=== PATIENT | female | born 1980 | race Caucasian/White ===

== ENCOUNTER 2018-02-06 22:19 | Emergency (ER) | payer OTHER ==
[~2018-02-06] VITALS: Ht 152.4 cm; Wt 59.4 kg
[~2018-02-06 22:19] MED LIST: CELEXA40 MG PO; CIPROFLOXACIN500 M1 PO; EFFEXOR XR150 MG; PROTONIX40 MG PO; PYRIDIUM200 MG PO; SEROQUEL 50 MG50 MG; XANAX 0.25 MG0.25 MG PO; ZOFRAN ODT4 MG PO
[2018-02-06] MEDS ORDERED: EFFEXOR XR75 MG (22:27)
[2018-02-06] MEDS ORDERED: ASPIR 8181 MG (22:27)
[2018-02-06 22:47] LABS: ABSOLUTE EOSINOPHILS 0.2 thou/uL (0.0-0.7); ABSOLUTE LYMPHOCYTES 2.3 thou/uL (0.8-5.3); ABSOLUTE MONOCYTES 0.5 thou/uL (0.0-1.2); ABSOLUTE NEUTROPHILS 4.1 thou/uL (1.6-8.1); BASOPHILS 0.5 %; EOSINOPHILS 2.2 %; HEMATOCRIT 39.9 % (37.0-47.0); HEMOGLOBIN 13.5 gm/dL (12.0-15.0); LYMPHOCYTES 32.8 %; MCH 31.8 pg (26.0-34.0); MCHC 33.8 g/dL (28.0-37.0); MCV 94.2 fL (80.0-100.0); MONOCYTES 6.6 %; MPV 7.8 fl. (7.2-11.1); NUCLEATED RBCS 0 /100WBC; PLATELET COUNT* 263 thou/uL (150-400); POLYS 57.9 %; RBC 4.24 mil/uL (4.20-5.00); RDW-CV 13.2 % (10.5-14.5)
[2018-02-06 22:57] LABS: ANION GAP 6 mmol/L (7-16); BUN 7 mg/dL (7-18); CHLORIDE 102 mmol/L (98-107); CO2 30 mmol/L (21-32); CREATININE 0.7 mg/dL (0.6-1.3); GLUCOSE 89 mg/dL (70-99); POTASSIUM 3.8 mmol/L (3.5-5.1); SODIUM 138 mmol/L (136-145)
[2018-02-06 22:59] LABS: PROTIME 10.2 Seconds (9.20-11.50)
[2018-02-06 23:03] LABS: ALKALINE PHOSPHATASE 67 U/L (46-116); LIPASE 172 U/L (73-393); SGOT 26 U/L (15-37); SGPT 31 U/L (30-65); TOTAL BILIRUBIN 0.5 mg/dL (<0.1-1.0); TOTAL PROTEIN 7.6 g/dL (6.4-8.2); TROPONIN-I LEVEL <0.06 ng/mL (<0.06)
[2018-02-07 01:13] VITALS: BP 111/65
--- NOTE | 2018-02-07 09:52 | EKG ---
[place] [address] ELECTROCARDIOGRAM REPORT Name: LITA HORN Room: [facility]#: [id number] Admission: 02/06/18 Attend Phys: Discharge: 02/07/18 Date of : 76 Report #: [id number] THIS REPORT FOR: //name// [facility] ED Test Date: 2018-02-06 Test Time: 22:25:48 Pat Name: LITA HORN Department: Room: Gender: F Quality Assurance/R&D Lab Technician: AKASH Green : 1980 Requested By: Hortencia Campo Order Number: [id number] MD: Simon Reagan Measurements Intervals [place] Rate: 75 P: 47 PA: 145 QRS: 67 QRSD: 89 T: 58 QT: 395 QTc: 442 Interpretive Statements Sinus rhythm Compared to ECG 06/17/2015 09:31:01 No significant changes Electronically Signed On 02-07-2018 9:52:19 CDT by Simon Reagan [email or web address] <ELECTRONICALLY SIGNED> By: Simon Reagan MD, [facility] 02/07/18 0952 2224 24 Simon Reagan MD, FACC /EPI
== END 2018-02-07 01:18 | disposition home or self-care (01) ==
LOC: M.ERS 22:19
PROVIDERS: Emergency Medicine
DX: R07.9 Chest pain, unspecified (principal)

== ENCOUNTER → 2018-04-07 | Outpatient (CLI) | payer OTHER ==
[~2018-04-07] MED LIST changes: +ASPIR 8181 MG; +EFFEXOR XR75 MG; +FLEXERIL PO
--- NOTE | 2018-04-07 14:05 | EXE ---
[place] [address] STRESS ECHOCARDIOGRAM Name: ЕЛЕНАKAILITA Room: [facility]#: [id number] Admission: 04/07/18 Attend Phys: Eliceo Suero, Discharge: Date of : 76 Date of Service: 04/07/18 1405 Report #: [id number] THIS REPORT FOR: //name// APPROVED REPORT Study performed: 04/07/2018 11:06:59 Exam: Stress Echocardiogram Indication: Chest pain Patient Location: Out-Patient Stress Nurse: Farrah Prajapati RN Supervising Physician: Dg Sanders MD Status: routine Ht: 5 ft 0 in HR: 76 bpm BP: 108/79 mmHg Rhythm: NSR Medical History Cardiac Risk Factors: FHX of CAD Procedure The patient underwent an Exercise Stress Test using the Steven Protocol. Blood pressure, heart rate, and EKG were monitored. An Echocardiogram was performed by physical therapy technician in four stages in quad fashion. At peak stress, four selected images were obtained and placed side by side with resting images for comparison. Stress Test Details Stress Test: Exercise stress testing was performed using a Steven protocol. HR Resting HR: 76 bpm Max Heart Rate (APMHR): 180 bpm Max HR Achieved: 182 bpm Target HR (85% APMHR): 153 bpm % of APMHR: 101 Recovery HR: 88 bpm HR response to stress: Normal HR response to stress BP Resting BP: 108/79 mmHg Max BP: 126/80 mmHg Recovery BP: 115/84 mmHg ECG Resting ECG: [place] [address] STRESS ECHOCARDIOGRAM Name: LITA HORN Room: [facility]#: [id number] Admission: 04/07/18 Attend Phys: Eliceo Suero, Discharge: Date of : 76 Date of Service: 04/07/18 1405 Report #: [id number] Stress ECG: minor nonspecific st-t changes Clinical Reason for Termination: Maximal effort, ST changes Exercise duration: 10 min sec Highest Stage Achieved: Stage 4: 4.2 mph at 16% grade. Exercise capacity: 11.83 METs Pre-Stress Echo The resting Echocardiogram showed normal left ventricular contractility with an estimated Ejection Fraction of about 55-60%. Normal wall motion in all segments on baseline images. Post-Stress Echo The stress Echocardiogram showed normal left ventricular contractility with an estimated Ejection Fraction of about >70%. Normal augmentation of wall motion in all segments on post stress images. Conclusion Clinical Response: Non-ischemic Exercise Capacity: Average Stress ECG Response: Non-ischemic Stress Echo Images: Non-ischemic Other Information Study Quality: Adequate <ELECTRONICALLY SIGNED> By: Dg Sanders MD, [facility] 04/07/18 1405 1405 04 Dg Sanders MD, [facility] /INF
== END ==
LOC: M.CRD 10:35
DX: R07.9 Chest pain, unspecified (principal); R07.2 Precordial pain

== ENCOUNTER → 2018-04-07 | Outpatient (CLI) | payer OTHER | LOC: M.CT 08:58 | DX: Z13.6 Encounter for screening for cardiovascular disorders (principal) ==

== ENCOUNTER 2018-04-18 08:21 | Emergency (ER) | payer OTHER ==
[~2018-04-18] VITALS: Ht 152.4 cm; Wt 54.4 kg
[~2018-04-18 08:21] MED LIST changes: -FLEXERIL PO
[2018-04-18 09:02] LABS: CALCIUM 8.6 mg/dL (8.5-10.1); CREATININE 0.8 mg/dL (0.6-1.3); POTASSIUM 3.9 mmol/L (3.5-5.1)
[2018-04-18] MEDS ORDERED: FLEXERIL PO (11:07)
[2018-04-18 11:15] VITALS: BP 100/69
== END 2018-04-18 11:16 | disposition home or self-care (01) ==
LOC: M.ERS 08:21
PROVIDERS: Emergency Medicine Emergency Medical Services
DX: M79.662 Pain in left lower leg (principal)

== ENCOUNTER → 2018-10-19 | Outpatient (CLI) | payer OTHER ==
[~2018-10-19] MED LIST changes: +FLEXERIL PO
== END ==
LOC: M.RAD 10:54
DX: J18.9 Pneumonia, unspecified organism (principal)

== ENCOUNTER → 2019-03-10 | Outpatient (CLI) | payer OTHER ==
[2019-03-10 11:18] LABS: URINE BILIRUBIN NEGATIVE (Negative); URINE BLOOD NEGATIVE (Negative); URINE CLARITY CLEAR; URINE COLOR YELLOW; URINE GLUCOSE-RANDOM NEGATIVE (Negative); URINE KETONES NEGATIVE (Negative); URINE LEUKOCYTES NEGATIVE (Negative); URINE NITRITE NEGATIVE (Negative); URINE PROTEIN NEGATIVE (Negative); URINE UROBILINOGEN 0.2 E.U./dl (0.2-1.0)
[2019-03-10 11:23] LABS: ABSOLUTE EOSINOPHILS 0.1 thou/uL (0.0-0.7); ABSOLUTE LYMPHOCYTES 1.5 thou/uL (0.8-5.3); ABSOLUTE MONOCYTES 0.7 thou/uL (0.0-1.2); BASOPHILS 0.5 %; EOSINOPHILS 1.3 %; HEMATOCRIT 43.7 % (37.0-47.0); HEMOGLOBIN 14.5 gm/dL (12.0-15.0); LYMPHOCYTES 15.6 %; MCH 31.2 pg (26.0-34.0); MCHC 33.3 g/dL (28.0-37.0); MCV 93.9 fL (80.0-100.0); MONOCYTES 7.4 %; MPV 7.4 fl. (7.2-11.1); NUCLEATED RBCS 0 /100WBC; PLATELET COUNT* 316 thou/uL (150-400); POLYS 75.2 %; RBC 4.65 mil/uL (4.20-5.00); RDW-CV 14.4 % (10.5-14.5); WBC 9.3 thou/uL (4.0-11.0)
[2019-03-10 11:37] LABS: ALKALINE PHOSPHATASE 69 U/L (46-116); ANION GAP 6 mmol/L (7-16); BUN 12 mg/dL (7-18); CHLORIDE 103 mmol/L (98-107); CHOLESTEROL 219 mg/dL (<200); CO2 29 mmol/L (21-32); CREATININE 0.7 mg/dL (0.6-1.3); GLUCOSE 103 mg/dL (70-99); HDL CHOLESTEROL 80 mg/dL (>40); LDL CHOLESTEROL 128 mg/dL (<100); POTASSIUM 3.8 mmol/L (3.5-5.1); SGOT 31 U/L (15-37); SGPT 45 U/L (30-65); SODIUM 138 mmol/L (136-145); TC:HDL 2.7 Ratio (Not establshd); TOTAL BILIRUBIN 0.4 mg/dL (<0.1-1.0); TRIGLYCERIDE 59 mg/dL (<150); VLDL 12 mg/dL (<40)
[2019-03-10 11:38] LABS: SERUM ASSESSMENT Clear
[2019-03-10 21:08] LABS: LDL (DIRECT) CHOL 124 mg/dL (0-99)
[2019-03-11 02:10] LABS: HIV-1/HIV-2 ANTIBODY Non Reactive (Non Reactive)
[2019-03-11 18:08] LABS: EBNA-1 IgG >600.0 U/mL (0.0-17.9); EBV EA IgG <9.0 U/mL (0.0-8.9); EBV VCA IgM <36.0 U/mL (0.0-35.9)
== END ==
LOC: M.LAB 10:24
PROVIDERS: Family Medicine
DX: Z13.220 Encounter for screening for lipoid disorders (principal); Z13.29 Encounter for screening for other suspected endocrine disorder; Z11.3 Encounter for screening for infections with a predominantly sexual mode of transmission; R00.2 Palpitations; F41.1 Generalized anxiety disorder

== ENCOUNTER → 2019-12-13 | Outpatient (CLI) | payer OTHER ==
[2019-12-13 16:47] LABS: ABSOLUTE EOSINOPHILS 0.3 thou/uL (0.0-0.7); ABSOLUTE LYMPHOCYTES 2.2 thou/uL (0.8-5.3); ABSOLUTE MONOCYTES 0.5 thou/uL (0.0-1.2); ABSOLUTE NEUTROPHILS 2.5 thou/uL (1.6-8.1); BASOPHILS 0.8 %; HEMATOCRIT 38.4 % (37.0-47.0); HEMOGLOBIN 13.1 gm/dL (12.0-15.0); LYMPHOCYTES 39.9 %; MCH 31.8 pg (26.0-34.0); MCHC 34.2 g/dL (28.0-37.0); MCV 92.8 fL (80.0-100.0); MONOCYTES 8.5 %; MPV 7.2 fl. (7.2-11.1); NUCLEATED RBCS 0 /100WBC; PLATELET COUNT* 291 thou/uL (150-400); POLYS 45.8 %; RBC 4.13 mil/uL (4.20-5.00); WBC 5.5 thou/uL (4.0-11.0)
[2019-12-13 17:00] LABS: ALBUMIN 3.8 g/dL (3.4-5.0); ALKALINE PHOSPHATASE 67 U/L (46-116); ANION GAP 5 mmol/L (7-16); BUN 9 mg/dL (7-18); CALCIUM 8.9 mg/dL (8.5-10.1); CHLORIDE 105 mmol/L (98-107); CHOLESTEROL 223 mg/dL (<200); CO2 31 mmol/L (21-32); GLUCOSE 119 mg/dL (70-99); HDL CHOLESTEROL 77 mg/dL (>40); LDL CHOLESTEROL 138 mg/dL (<100); POTASSIUM 3.9 mmol/L (3.5-5.1); SGOT 15 U/L (15-37); SGPT 20 U/L (30-65); SODIUM 141 mmol/L (136-145); TC:HDL 2.9 Ratio (Not establshd); TOTAL BILIRUBIN 0.5 mg/dL (<0.1-1.0); TOTAL PROTEIN 7.3 g/dL (6.4-8.2); TRIGLYCERIDE 41 mg/dL (<150); VLDL 8 mg/dL (<40)
[2019-12-13 17:01] LABS: SERUM ASSESSMENT Clear
[2019-12-14 02:09] LABS: GLYCOHEMOGLOBIN (HGB A1C) 5.1 % (4.8-5.6)
== END ==
LOC: M.LAB 16:28
PROVIDERS: ATTEND Internal Medicine
DX: E78.2 Mixed hyperlipidemia (principal); F90.2 Attention-deficit hyperactivity disorder, combined type

== ENCOUNTER → 2020-04-18 | Outpatient (CLI) | payer OTHER ==
[2020-04-18 15:38] LABS: HEMATOCRIT 39.1 % (37.0-47.0); HEMOGLOBIN 13.5 gm/dL (12.0-15.0); MCH 31.6 pg (26.0-34.0); MCHC 34.4 g/dL (28.0-37.0); MCV 91.8 fL (80.0-100.0); RBC 4.26 mil/uL (4.20-5.00); RDW-CV 13.3 % (10.5-14.5); WBC 8.1 thou/uL (4.0-11.0)
[2020-04-18 15:49] LABS: ALBUMIN 3.8 g/dL (3.4-5.0); CALCIUM 8.5 mg/dL (8.5-10.1); CREATININE 0.7 mg/dL (0.6-1.3); POTASSIUM 3.7 mmol/L (3.5-5.1); TOTAL BILIRUBIN 0.2 mg/dL (<0.1-1.0); TOTAL PROTEIN 7.4 g/dL (6.4-8.2)
== END ==
LOC: M.LAB 15:16
PROVIDERS: ATTEND Internal Medicine Cardiovascular Disease
DX: R00.2 Palpitations (principal); R00.0 Tachycardia, unspecified; R06.09 Other forms of dyspnea

== ENCOUNTER → 2020-04-23 | Outpatient (CLI) | payer OTHER ==
--- NOTE | 2020-04-23 14:05 | 2DMMODE ---
[place] [address] 2 D/M-MODE ECHOCARDIOGRAM Name: LITA HORN Room: [facility]#: [id number] Admission: 04/23/20 Attend Phys: Eliceo Suero, Discharge: Date of : 76 Date of Service: 04/23/20 1404 Report #: [id number] THIS REPORT FOR: cc: Kerry Black MD, Lin W. MD Liston, Michael J. MD [facility] ~ APPROVED REPORT Study performed: 04/23/2020 09:10:26 EXAM: Comprehensive 2D, Doppler, and color-flow Echocardiogram Patient Location: Out-Patient BSA: 1.59 HR: 98 bpm BP: 110/70 mmHg Other Information Study Quality: Good Indications Palpitations Tachycardia 2D Dimensions IVSd: 9.67 (7-11mm) LVOT Diam: 19.42 (18-24mm) LVDd: 40.48 mm PWd: 9.09 (7-11mm) Ascending Ao: 26.05 (22-36mm) LVDs: 29.07 (25-40mm) Aortic Root: 25.95 mm Volumes Left Atrial Volume (Systole) LA ESV Index: 13.30 mL/m2 Aortic Valve AoV Peak Gil.: 1.05 m/s AO Peak Gr.: 4.42 mmHg LVOT Max P.01 mmHg AO Mean Gr.: 2.30 mmHg LVOT Mean P.51 mmHg LVOT Max V: 1.00 m/s AO V2 VTI: 19.28 cm LVOT Mean V: 0.76 m/s STEPHEN (VTI): 3.18 cm2 LVOT V1 VTI: 20.72 [place] [address] 2 D/M-MODE ECHOCARDIOGRAM Name: LITA HORN Room: [facility]#: [id number] Admission: 04/23/20 Attend Phys: Eliceo Suero, Discharge: Date of : 76 Date of Service: 04/23/20 1404 Report #: [id number] E/A Ratio: 1.06 MV Decel. Time: 194.76 ms MV E Max Gil.: 0.74 m/s MV PHT: 56.48 ms MVA (PHT): 3.90 cm2 TDI E/Lateral E': 3.89 E/Medial E': 4.93 Medial E' Gil.: 0.15 m/s Lateral E' Gil.: 0.19 m/s Pulmonary Valve PV Peak Gil.: 0.77 m/s PV Peak Gr.: 2.39 mmHg Left Ventricle The left ventricle is normal size. There is normal LV segmental wall motion. There is normal left ventricular wall thickness. Left ventricular systolic function is normal. LVEF is 55-60%. The left ventricular diastolic function is normal. Right Ventricle The right ventricle is normal size. The right ventricular systolic function is normal. Atria The left atrium size is normal. The right atrium size is normal. Aortic Valve The aortic valve is normal in structure. No aortic regurgitation is present. There is no aortic valvular stenosis. Mitral Valve The mitral valve is normal in structure. There is no mitral valve regurgitation noted. No evidence of mitral valve stenosis. Tricuspid Valve The tricuspid valve is normal in structure. There is no tricuspid valve regurgitation noted. Pulmonic Valve The pulmonary valve is normal in structure. There is no pulmonic valvular regurgitation. Great Vessels The aortic root is normal in size. [place]C [place] [address] 2 D/M-MODE ECHOCARDIOGRAM Name: LITA HORN Room: [facility]#: [id number] Admission: 04/23/20 Attend Phys: Eliceo Suero, Discharge: Date of : 76 Date of Service: 04/23/20 1404 Report #: [id number] collapses >50% with inspiration. Pericardium There is no pericardial effusion. <Conclusion> The left ventricle is normal size. There is normal left ventricular wall thickness. Left ventricular systolic function is normal. LVEF is 55-60%. The left ventricular diastolic function is normal. IVC is normal in size and collapses >50% with inspiration. <ELECTRONICALLY SIGNED> By: Eliceo Suero MD, [facility] 04/23/20 1404 140 140 lEiceo Suero MD, FACC /INF
== END ==
LOC: M.CRD 09:23
PROVIDERS: ATTEND Internal Medicine Cardiovascular Disease
DX: R00.2 Palpitations (principal); R00.0 Tachycardia, unspecified; R06.09 Other forms of dyspnea; R07.2 Precordial pain

== ENCOUNTER 2020-06-22 16:48 | Emergency (ER) | payer OTHER ==
[~2020-06-22] VITALS: Ht 152.4 cm; Wt 59.0 kg
[2020-06-22] MEDS ORDERED: TOPROL XL50 MG (17:53)
[2020-06-22] MEDS ORDERED: ADDERALL XR 2020 MG PO (17:53)
[2020-06-22] MEDS ORDERED: ZOFRAN ODT4 MG DISSOLVE (18:44)
[2020-06-22 19:20] VITALS: BP 133/86
== END 2020-06-22 19:20 | disposition home or self-care (01) ==
LOC: M.ERS 16:48
DX: R05 Cough (principal); R50.9 Fever, unspecified; R19.7 Diarrhea, unspecified; R51.9 Headache, unspecified; R09.89 Other specified symptoms and signs involving the circulatory and respiratory systems; R11.0 Nausea; Z20.828 Contact with and (suspected) exposure to other viral communicable diseases; Z87.442 Personal history of urinary calculi; Z79.899 Other long term (current) drug therapy

== ENCOUNTER → 2020-08-01 | Outpatient (CLI) | payer OTHER ==
[~2020-08-01] MED LIST changes: +ADDERALL XR 2020 MG PO; +TOPROL XL50 MG; +ZOFRAN ODT4 MG DISSOLVE
== END ==
LOC: M.ULTRA 12:20
PROVIDERS: ATTEND Internal Medicine
DX: Z12.31 Encounter for screening mammogram for malignant neoplasm of breast (principal); N94.6 Dysmenorrhea, unspecified; N83.202 Unspecified ovarian cyst, left side

== ENCOUNTER 2020-08-20 06:15 | Emergency (ER) | payer OTHER ==
[~2020-08-20] VITALS: Ht 152.4 cm; Wt 61.2 kg
[2020-08-20] MEDS ORDERED: HYDROCODON-ACE1 EAC7 PO (08:22)
[2020-08-20] MEDS ORDERED: FLEXERIL PO (08:22)
[2020-08-20] MEDS ORDERED: IBUPROFEN 800800 MG PO (08:30)
[2020-08-20 08:34] VITALS: BP 115/68
== END 2020-08-20 08:34 | disposition home or self-care (01) ==
LOC: M.ERS 06:15
DX: S16.1XXA Strain of muscle, fascia and tendon at neck level, initial encounter (principal); Z79.899 Other long term (current) drug therapy; V47.5XXA Car driver injured in collision with fixed or stationary object in traffic accident, initial encounter; Y93.89 Activity, other specified; Y92.89 Other specified places as the place of occurrence of the external cause; Y99.8 Other external cause status

== ENCOUNTER → 2020-09-03 | Outpatient (CLI) | payer OTHER ==
[~2020-09-03] MED LIST changes: +HYDROCODON-ACE1 EAC7 PO; +IBUPROFEN 800800 MG PO
== END ==
LOC: M.SLEEPLAB 08-20 12:00 → M.PUL 11:00
PROVIDERS: ATTEND Internal Medicine
DX: R06.83 Snoring (principal)

== ENCOUNTER 2021-03-16 12:46 | Emergency (ER) | payer OTHER ==
[~2021-03-16] VITALS: Ht 152.4 cm; Wt 61.2 kg
[2021-03-16] MEDS ORDERED: XANAX 0.5 MG0.5 MG PO (14:21)
[2021-03-16] MEDS ORDERED: PROAIR HFA8.5 GM INH (14:21)
[2021-03-16] MEDS ORDERED: ZPAK PO (14:21)
[2021-03-16] MEDS ORDERED: TESSALON PERLE100 MG PO (14:21)
[2021-03-16 14:32] VITALS: BP 124/72
== END 2021-03-16 14:33 | disposition home or self-care (01) ==
LOC: M.ERS 12:46
DX: U07.1 COVID-19 (principal); J12.82 Pneumonia due to coronavirus disease 2019; Z79.1 Long term (current) use of non-steroidal anti-inflammatories (NSAID); Z79.899 Other long term (current) drug therapy